=== PATIENT | male | born 1960 | race Caucasian/White ===

== ENCOUNTER 2018-03-08 09:48 | Outpatient (CLI) | payer OTHER, SELFPAY ==
[2018-03-08 11:09] LABS: Anion Gap 8.8 mmol/L (3-11); BUN 12 mg/dL (7-18); CO2 32.2 mmol/L (21.0-32.0); CREATININE 0.87 mg/dL (0.70-1.30); Chloride 100 mmol/L (98-107); Cholesterol 215 mg/dL (50-200); Glucose 98 mg/dL (70-100); HDL Cholesterol 61 mg/dL (40-60); LDL CHOLESTEROL 107 mg/dL (<100); Potassium 4.1 mmol/L (3.5-5.1); Sodium 141 mmol/L (136-145); Triglyceride 143 mg/dL (30-150)
[2018-03-09 11:31] LABS: HIV-1/2 Ag & Ab Screen Negative (NEGAT)
== END 2018-03-08 10:08 ==
PROVIDERS: PCP Internal Medicine; Visit Provider Internal Medicine
DX: E78.5 Hyperlipidemia, unspecified (principal); E11.9 Type 2 diabetes mellitus without complications; I10 Essential (primary) hypertension; R73.01 Impaired fasting glucose; Z11.4 Encounter for screening for human immunodeficiency virus [HIV]
CPT/HCPCS: 36415; 80048; 80061; 83721; 87389

== ENCOUNTER 2019-03-28 09:44 | Outpatient (CLI) | payer OTHER, SELFPAY ==
[2019-03-28 10:44] LABS: Anion Gap 6.9 mmol/L (3-11); BUN 19 mg/dL (7-18); CO2 34.1 mmol/L (21.0-32.0); CREATININE 0.94 mg/dL (0.70-1.30); Calcium 9.8 mg/dL (8.5-10.1); Calculated LDL 165 mg/dL; Chloride 101 mmol/L (98-107); Cholesterol 268 mg/dL (<200); Glucose 100 mg/dL (74-106); HDL Cholesterol 80 mg/dL (40-60); Potassium 4.4 mmol/L (3.5-5.1); Sodium 142 mmol/L (136-145); Triglyceride 119 mg/dL (<150)
[2019-03-29 15:03] LABS: PSA, Screening 0.5 ng/mL (0.0-3.5)
== END 2019-03-28 10:04 ==
PROVIDERS: PCP Internal Medicine; Visit Provider Internal Medicine
DX: I10 Essential (primary) hypertension (principal); E78.00 Pure hypercholesterolemia, unspecified; Z12.5 Encounter for screening for malignant neoplasm of prostate
CPT/HCPCS: 36415; 80048; 80061; 84153

== ENCOUNTER 2019-12-16 09:28 | Emergency (ER) | payer OTHER, SELFPAY ==
[2019-12-16 09:36] VITALS: BP 156/100; PULSE 60; RESP 18; TEMP 36.6; O2SAT 99
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
--- NOTE | 2019-12-16 10:30 | DI.RAD_ITS ---
EXAM: XR SHOULDER RT COMPLETE 2+V CLINICAL HISTORY: R shoulder laterl/post pain TECHNIQUE: 2D digital imaging was performed. COMPARISON: No exams were available for comparison FINDINGS: There is fracture of the scapula seen at the level and beneath level of the glenoid. There is monitoring analyst ior displacement of the inferior fractured portion. The humeral head appears normally aligned with r espect to the glenoid. The AC joint is not widened. No proximal humeral fracture or rib fracture is seen. The there is a small to moderate size right pneumothorax. IMPRESSION: Displaced scapular fracture beneath the level of the glenoid. Right pneumothorax.
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
--- NOTE | 2019-12-16 11:12 | NUR.NOTE ---
REFERRAL FAXED TO [facility] DR Cordero Note:
[2019-12-16 11:17] VITALS: BP 149/90; PULSE 60; RESP 18; O2SAT 100
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
== END 2019-12-16 11:15 | disposition home or self-care (01) ==
PROVIDERS: Emergency Provider Emergency Medicine; PCP Internal Medicine
DX: S42.111A Displaced fracture of body of scapula, right shoulder, initial encounter for closed fracture (principal); S27.0XXA Traumatic pneumothorax, initial encounter; V18.0XXA Pedal cycle driver injured in noncollision transport accident in nontraffic accident, initial encounter; Y93.55 Activity, bike riding; M25.521 Pain in right elbow
CPT/HCPCS: 23570; 71250; 99283; 73030; 73080; 73200; 99282; L3650

== ENCOUNTER 2019-12-18 01:44 | Outpatient (CLI) | payer OTHER, SELFPAY ==
--- NOTE | 2019-12-18 08:35 | DI.RAD_ITS ---
EXAM: XR CHEST 1V IN DI DEPT CLINICAL HISTORY: RT SHOULDER PAIN, F/U PNEUMOTHORAX TECHNIQUE: 2D digital imaging was performed. COMPARISON: CR,XR XR SHOULDER RT COMPLETE 2+V from 12/16/2019 FINDINGS: There has been mild improvement in the size of the right apical pneumothorax when compared with previ ous shoulder films. Findings could also be secondary to differences in patient position. The heart size is normal. The lungs are clear. IMPRESSION: Mild interval improvement in right pneumothorax, small.
== END 2019-12-18 02:04 ==
PROVIDERS: PCP Internal Medicine; Visit Provider Emergency Medicine
DX: J93.83 Other pneumothorax (principal); M25.511 Pain in right shoulder
CPT/HCPCS: 71045

== ENCOUNTER 2019-12-31 14:19 | Outpatient (CLI) | payer OTHER, SELFPAY ==
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
== END 2019-12-31 14:39 ==
PROVIDERS: PCP Internal Medicine; Visit Provider Student in an Organized Health Care Education/Training Program
DX: S42.111A Displaced fracture of body of scapula, right shoulder, initial encounter for closed fracture (principal)
CPT/HCPCS: 73030

== ENCOUNTER 2020-04-11 09:15 | Outpatient (REF) | payer OTHER, SELFPAY ==
[2020-04-11 11:00] LABS: Anion Gap 6.2 mmol/L (3-11); BUN 20 mg/dL (7-18); CO2 30.8 mmol/L (21.0-32.0); CREATININE 0.85 mg/dL (0.70-1.30); Calcium 9.1 mg/dL (8.5-10.1); Calculated LDL 89 mg/dL (<100); Chloride 104 mmol/L (98-107); Cholesterol 185 mg/dL (<200); Glucose 110 mg/dL (74-106); HDL Cholesterol 75 mg/dL (40-60); Potassium 4.1 mmol/L (3.5-5.1); Sodium 141 mmol/L (136-145); Triglyceride 108 mg/dL (<150)
== END 2020-04-11 09:35 ==
LOC: LBN 09:15
PROVIDERS: PCP Internal Medicine; Visit Provider Internal Medicine
DX: I10 Essential (primary) hypertension (principal); E78.00 Pure hypercholesterolemia, unspecified
CPT/HCPCS: 80048; 80061

== ENCOUNTER 2020-11-28 09:23 | Outpatient (REF) | payer OTHER, SELFPAY ==
[2020-11-28 09:55] LABS: Source Nasal/Nares
[2020-11-28 10:48] LABS: COVID-19 PCR Negative (Negative)
== END 2020-11-28 09:24 | disposition home or self-care (01) ==
LOC: LBN 09:23
PROVIDERS: PCP Internal Medicine; Visit Provider Nurse Practitioner Gerontology
DX: Z20.822 Contact with and (suspected) exposure to COVID-19 (principal)
CPT/HCPCS: 87635

== ENCOUNTER 2021-05-13 01:45 | Outpatient (CLI) | payer OTHER, SELFPAY ==
[2021-05-13 10:20] LABS: Anion Gap 6.4 mmol/L (3-11); BUN 19 mg/dL (7-18); CO2 30.6 mmol/L (21.0-32.0); CREATININE 0.8 mg/dL (0.70-1.30); Calcium 9.1 mg/dL (8.5-10.1); Calculated LDL 84 mg/dL (<100); Chloride 105 mmol/L (98-107); Cholesterol 178 mg/dL (<200); Glucose 88 mg/dL (74-106); HDL Cholesterol 75 mg/dL (40-60); Potassium 4.5 mmol/L (3.5-5.1); Sodium 142 mmol/L (136-145); TSH 2.56 uIU/mL (0.36-3.74); Triglyceride 99 mg/dL (<150)
[2021-05-13 17:34] LABS: PSA, Screening 0.6 ng/mL (0.0-4.5)
== END 2021-05-13 01:46 | disposition home or self-care (01) ==
LOC: LBO 01:46
PROVIDERS: PCP Internal Medicine; Visit Provider Internal Medicine
DX: E78.00 Pure hypercholesterolemia, unspecified (principal); R63.5 Abnormal weight gain; I10 Essential (primary) hypertension; Z12.5 Encounter for screening for malignant neoplasm of prostate
CPT/HCPCS: 36415; 80048; 80061; 84153; 84443

== ENCOUNTER 2021-06-12 03:20 | Outpatient (CLI) | payer OTHER, SELFPAY ==
[2021-06-12 09:28] LABS: Source Nasal/Nares
[2021-06-12 14:14] LABS: COVID-19 PCR Negative (Negative)
== END 2021-06-12 03:21 | disposition home or self-care (01) ==
LOC: LBO 03:21
PROVIDERS: PCP Internal Medicine; Visit Provider Surgery
DX: Z20.822 Contact with and (suspected) exposure to COVID-19 (principal)
CPT/HCPCS: 87635

== ENCOUNTER 2021-06-15 06:10 | Day surgery (SDC) | payer OTHER, SELFPAY ==
[2021-06-15 06:19] VITALS: BP 136/96; PULSE 64; RESP 18; TEMP 36.6; O2SAT 97
[2021-06-15] MEDS: Lactated Ringers 1,000 ML 80 ML IV (06:40)
--- NOTE | 2021-06-15 06:46 | COLE_ITS ---
Colonoscopy Report Date of procedure: 06/15/21 Pre-op diagnosis general: Colon Cancer Screening Post-op diagnosis procedure note: same Procedure: Colonoscopy Surgeon: Kindra Santoro Anesthesia Type: General:No Airway Estimated blood loss (mL): 0 Pathology: none sent Complications: None Disposition: same day Indications: The patient is here for Colonoscopy pre-op.?His last screening was in 2012 in the state of [place], which he reports was unremarkable.?He has no family history of colon cancer. He has not had any bowel habit changes. -Discussed colonoscopy bowel prep as well as the procedure. Discussed possible complications of the procedure to include bleeding, pain, perforation, missed small lesion/polyp, sore throat, aspiration and adverse reaction to the medications. Questions were answered to patient?s satisfaction. No guarantees we re implied or given.? Prep: Miralax/Dulcolax Procedure Start Time: 07:27 Procedure End Time: 07:44 Retraction Time: 8 minutes Findings: Normal colon Procedure Description: After informed consent was obtained the patient was taken to the procedure room and placed in a left decubitous position. Monitors were applied and a time out was done. The patients name, date of , procedure, allergies to medic ations and metal in their body was reviewed. The patient was then sedated. Once sedated and comfortable a rectal exam was done. External exam was normal. Internal exam revealed a normal sphincter tone and no palpable masses. The prostate felt smooth. The scope was then introduced and retro-flexed. No internal hemorrhoids, polyps or masses were identified on retro-flexion. The scope was then advanced to the cecum without difficulty. The ileocecal vlave and appendiceal orifice were identified. The prep was good. The scope was then slowly retracted over 8 minutes back into the rectum. there were no polyps. There was no diverticulosis noted. The scope was removed and the patient was woken up and taken back to Same day surgery in stable condition. The patient tolerated the procedure well and there were no immediate complications. Follow up: The patient should follow up in 10 years unless they develop changes in bowel habits or other new gastrointestinal complaints.
--- NOTE | 2021-06-15 06:49 | W.PM.DSUDISC ---
Discharge Plan Disposition Patient Disposition: HOME Condition: Good Discharge Details Reason For Visit: Colonoscopy Attending Provider: Kindra Santoro Primary Care Provider: Monae Thomas Home Meds and New Rx's Prescriptions: Continued epinephrine [EpiPen 2-Venkata] 0.3 mg/0.3 mL auto-injector 0.3 mg IM ONCE PRN (Reason: anaphylaxis) Qty: 1 2RF fluticasone propionate 16 GM spray,suspension 50 mcg NS BID PRN0RF psyllium husk [Metamucil] 0.52 GM capsule 0.52 gm PO DAILY PRN0RF ibuprofen 200 MG tablet 200 mg PO HS PRN0RF Rx Instructions: 2-3 qhs prn pain sertraline [Zoloft] 50 mg tablet 150 mg PO DAILY Qty: 270 3RF Rx Instructions: for depression hydrochlorothiazide 12.5 mg capsule 12.5 mg PO DAILY Qty: 90 3RF Discharge Instructions Additional Instructions: Findings: Normal colon Follow up: 10 years Please call if you develop: fevers >101.5 Nausea or Vomiting Abdominal pain that is not transient Rectal bleeding that is more then a tbsp A hard abdomen and inability to pass gas DAY SURGERY UNIT POST ENDOSCOPY INSTRUCTIONS Instructions for everyone who is given Anesthesia: For your safety, please do the following for the next 24 Hours: a. Do not drive or operate dangerous equipment b. Do not drink alcohol beverages or use any recreational drugs for the first 24 hours or while taking pain medications. The medications in your body may have a reaction that can be dangerous. c. Do not make any important decisions or sign any important papers 1. Generally there are no restrictions on your activity after a day or so has gone by, but you may feel a bit fatigued for a few days. 2. After you arrive home you may have a light meal and return to a normal diet as you can tolerate it without feeling sick to your stomach. 3. After surgery, you may feel pain or discomfort. This should be only transient, but if it persists please contact your doctor. 4. If there are any questions regarding the findings of your procedure, please feel free to contact your doctor. 6. If you are unable to contact your doctor with a problem, contact the hospital at [phone]. 7. Continue all your regular medications unless directed otherwise. I understand the above instructions and have no questions. Signature of Patient or Responsible Adult Escort Date/Time Name of Responsible Adult Escort Signature of Nurse Date/Time Activity:: Activity as Tolerated Diet:: As Tolerated Discharge Orders Discharge Orders: Discharge Order (Routine); Ordered 06/15/21 Ordered By: Kindra Santoro
[2021-06-15 07:03] VITALS: BMI 26.2
--- NOTE | 2021-06-15 07:03 | W.ANESPRE ---
General Info Date of Service Date Performed: 06/15/21 Height: 6 ft 3 in Weight: 95.311 kg Body Mass Index (BMI): 26.2 Surgical Procedure: Operation Date: 06/15/21 07:35 Proposed Procedure Side Surgeon michael Santoro MD Meds Allergies and Home Medications Allergies Allergy/AdvReac Type Severity Reaction Status Date / Time hornet venom Allergy Severe lips and Verified 06/15/21 06:22 facial swelling No Known Drug Allergies Allergy Verified 06/15/21 06:22 Home Medication Medication Instructions Recorded fluticasone propionate 50 50 mcg NS BID PRN spray 02/25/16 mcg/actuation nasal spray,suspension psyllium husk 0.52 gram capsule 0.52 gm PO DAILY PRN 02/25/16 (Metamucil) ibuprofen 200 mg tablet 200 mg PO HS PRN 03/02/17 epinephrine 0.3 mg/0.3 mL 0.3 mg (0.3 mL) IM ONCE PRN #1 each 03/28/19 injection, auto-injector (EpiPen 2-Venkata) hydrochlorothiazide 12.5 mg capsule 12.5 mg PO DAILY #90 tab-cap 03/17/21 sertraline 50 mg tablet (Zoloft) 150 mg PO DAILY #270 tab-cap 03/17/21 Current Visit Medications: Current Medications Generic Name Dose Route Start Last Admin Trade Name Freq PRN Reason Stop Dose Admin Hyoscyamine Sulfate 0.125 mg 06/15/21 06:49 Hyoscyamine 0.125 Mg Sl/Oral/Chew SL DIRECTED PRN Ringer's Solution 1,000 mls @ 80 mls/hr 06/15/21 06:00 06/15/21 06:40 IV 07/12/21 23:59 80 mls/hr INFUSION KRISTI Administration IV Miscellaneous Supplies 1 each 06/15/21 06:00 Iv Access IV 07/12/21 23:59 DIRECTED KRISTI Ondansetron HCl 4 mg 06/15/21 06:49 Ondansetron 4 Mg/2 Ml Vial IVP Q4H PRN PRN Nausea / Vomiting Sodium Chloride 0 ml 06/15/21 06:00 Normal Saline Flush 10 Ml Syr IV 07/12/21 23:59 PRN PRN Sodium Chloride 0 ml 06/15/21 06:00 Normal Saline 10 Ml Vial IJ 07/12/21 23:59 DIRECTED PRN Sterile Water 0 ml 06/15/21 06:00 Water,Injection,Sterile 10 Ml Vial IJ 07/12/21 23:59 DIRECTED PRN PFSH Active Problems Active Problems: Problem Status Onset Code Hypertension 02/18/15 I10 Hyperlipidemia 02/18/15 E78.5 Medical History Medical History Allergic rhinitis (02/18/15) Bee sting reaction (02/25/16) Degeneration of lumbar intervertebral disc (02/18/15) Depression (02/18/15) Encounter for screening laboratory testing for COVID-19 virus Pneumothorax on right (12/16/19) Right scapula fracture (12/16/19) Surgical History Surgical History Arthroplasty of knee left and right-pt. denies History of arthroscopy of both knees Lumbar laminectomy L4-5 wisdom teeth extraction Tobacco Smoking/Tobacco Use Status: Current-Occasional Tobacco Type: cigars Alcohol Alcohol Intake: current Alcohol intake frequency: holidays/special occasions only Substance Use Substance use: Never Substance use type: does not use Vital Signs and Lab Results Vital Signs Most Recent Vital Signs in EMR: Most Recent Vital Signs Temp Pulse Resp BP Pulse Ox 36.6 C 64 18 136/96 H 97 06/15/21 06:19 06/15/21 06:19 06/15/21 06:19 06/15/21 06:19 06/15/21 06:19 Lab Results Blood Type / Crossmatch: No Data to Display Complete Blood Count: No Data to Display Complete Metabolic Panel: No Data to Display Liver Function Panel: No Data to Display Coagulation Panel: No Data to Display Cardiac Panel: No Data to Display Arterial Blood Gas: No Data to Display Venous Blood Gas: No Data to Display Pancreas Panel: No Data to Display Thyroid Panel: No Data to Display Infectious Disease: Coronavirus (COVID-19)(PCR) Negative (Negative) 06/12/21 09:15 06/12/21 Coronavirus 2019 Source Nasal/Nares 06/12/21 09:15 06/12/21 Blood Cultures: No Data to Display Toxicology Panel: No Data to Display Anesthesia Assessment and Plan Anesthesia History Personal History: No History of Anesthesia Complications Family History: No Family History of Anesthesia Complications Exercise Tolerance Exercise Tolerance: Metabolic Equivalents>4 Pertinent Negatives Pertinent Negatives: No Symptoms of GERD Cardiac & Pulmonary Exam Cardiac Exam: Normal S1/S2 Heart Sounds Pulmonary Exam: Clear Bilateral Breath Sounds Implantable Cardiac Device Does patient have a Pacemaker or an ICD?: No Airway Exam Known Difficult Airway: No Mallampati Class: 2 Mouth Opening: Normal (> 3cm) Thyromental Distance: Greater than 3 cm Neck Range of Motion: Full ROM Neck Circumference: Normal Teeth Condition: Normal Dentition ASA Classification ASA Score: ASA 2 Emergency Case?: No NPO Status NPO Status: NPO Clears >2 hours, Solids >8 hours Anesthesia Plan Resuscitation Status: Full Code Anesthesia Technique: General Anesthesia Airway Planned: Natural Airway Monitors Used: Standard Monitors
[2021-06-15 07:58] VITALS: BP 110/83; PULSE 62; RESP 16; TEMP 36.3; O2SAT 97
[2021-06-15 08:20] VITALS: BP 123/85; PULSE 52; RESP 16; TEMP 36.3; O2SAT 96
--- NOTE | 2021-06-15 08:50 | W.ANESPOSTOP ---
Postoperative Evaluation Date, Time and Location Date Performed: 06/15/21 Time Performed: 08:20 Patient Location: Day Surgery Unit Vital Signs Most Recent Imported Vital Signs: Most Recent Vital Signs Temp Pulse Resp BP Pulse Ox 36.3 C L 52 L 16 123/85 96 06/15/21 08:20 06/15/21 08:20 06/15/21 08:20 06/15/21 08:20 06/15/21 08:20 Pain Score Most Recent Pain Score: Most Recent Pain Score Pain Level 0 06/15/21 08:20 Assessment Mental Status: Awake (Alert & Oriented to Patient Baseline) Airway and Respiratory Function: Patent airway with normal (patient baseline) respiratory exam Cardiovascular Function: Hemodynamically Stable Hydration Status: Adequately Hydrated Nausea & Vomiting: No Nausea or Vomiting Pain: Pt. Denies Any Pain Peripheral Nerve Block: Patient did not receive a nerve block
== END 2021-06-15 08:45 | disposition home or self-care (01) ==
PROVIDERS: PCP Internal Medicine; Visit Provider Surgery
PROC: 0DJD8ZZ Inspection of Lower Intestinal Tract, Via Natural or Artificial Opening Endoscopic (ICD-10-PCS; CPT 45378; principal; 2021-06-15 07:30)
DX: Z12.11 Encounter for screening for malignant neoplasm of colon (principal); E78.5 Hyperlipidemia, unspecified; I10 Essential (primary) hypertension
CPT/HCPCS: 45378

== ENCOUNTER 2021-07-13 07:07 | Outpatient (REF) | payer OTHER, SELFPAY ==
[2021-07-13 07:12] LABS: Source Nasal/Nares
[2021-07-13 07:52] LABS: COVID-19 PCR Negative (Negative)
== END 2021-07-13 07:08 | disposition home or self-care (01) ==
LOC: LBN 07:07
PROVIDERS: PCP Internal Medicine; Visit Provider Obstetrics & Gynecology
DX: Z20.822 Contact with and (suspected) exposure to COVID-19 (principal)
CPT/HCPCS: 87635

== ENCOUNTER 2022-04-29 13:39 | Outpatient (REF) | payer OTHER, SELFPAY ==
[2022-04-29 10:39] LABS: Anion Gap 5.9 mmol/L (3-11); BUN 20 mg/dL (7-18); CO2 33.1 mmol/L (21.0-32.0); CREATININE 0.8 mg/dL (0.70-1.30); Calcium 9.7 mg/dL (8.5-10.1); Calculated LDL 87 mg/dL (<100); Chloride 104 mmol/L (98-107); Cholesterol 192 mg/dL (<200); Estimated GFR 100.69 (mL/min/1.73m2); Glucose 109 mg/dL (74-106); HDL Cholesterol 83 mg/dL (40-60); Potassium 4.2 mmol/L (3.5-5.1); Sodium 143 mmol/L (136-145); Triglyceride 114 mg/dL (<150)
== END 2022-04-29 13:40 | disposition home or self-care (01) ==
LOC: LBN 13:39
PROVIDERS: PCP Nurse Practitioner Adult Health; Visit Provider Nurse Practitioner Adult Health
DX: E78.00 Pure hypercholesterolemia, unspecified (principal); F32.9 Major depressive disorder, single episode, unspecified; I10 Essential (primary) hypertension
CPT/HCPCS: 80048; 80061

== ENCOUNTER 2022-06-17 01:12 | Outpatient (CLI) | payer OTHER, SELFPAY ==
--- NOTE | 2022-06-17 14:01 | DI.US_ITS ---
APPROVED REPORT EXAM: Comprehensive 2D, Doppler, and color-flow Echocardiogram Patient Location: Out-Patient Conveyor Belt Installer: Levi Garcia RDMS, RVT Indications: assess valves, new cardiac murmur R sternal border Other Information Study Quality: Adequate. Technically limited study due to body habitus. Conclusion Normal left ventricular wall thickness and chamber size. Estimated ejection fraction is 60 to 65%. Wall motion is normal Normal right ventricular size and systolic function Both atria are normal in size Aortic valve is calcified and probably trileaflet. There is mild aortic stenosis with a peak gradien t of 23, mean of 13 mmHg and a calculated aortic valve area 1.11 cm?? Estimated right ventricular systolic pressure is 17 mmHg Wall motion Left Ventricle The left ventricle is normal size. The left ventricular systolic function is normal. The left ventric ular ejection fraction is within the normal range. There is normal left ventricular wall thickness. T here is normal LV segmental wall motion. There is no ventricular septal defect visualized. LVEF is 60 -65%. Right Ventricle The right ventricle is normal size. The right ventricular systolic function is normal. The RVSP is 17 .2 mmHg. Atria The left atrium size is normal. The right atrium size is normal. The interatrial septum is intact wit h no evidence for an atrial septal defect. Aortic Valve Aortic valve is calcified. Aortic valve is probably trileaflet. Mild aortic stenosis. Peak aortic radha ve gradient is 22.6 mmHg. Highest mean aortic valve gradient is 12.8 mmHg. Calculated SEAN by the cont inuity equation is 1.11 cm2. No aortic regurgitation is present. Mitral Valve The mitral valve is normal in structure. No evidence of mitral valve stenosis. Trace mitral regurgita tion. Tricuspid Valve The tricuspid valve is normal in structure. There is no tricuspid valve stenosis. Trace tricuspid reg urgitation. Pulmonic Valve Pulmonic valve is not well visualized. There is no pulmonic valvular stenosis. There is no pulmonic v alvular regurgitation. Great Vessels The aortic root is normal in size. The ascending aorta is normal in size. Aortic arch is not well vis ualized. IVC is normal in size and collapses >50% with inspiration. Pericardium There is no pericardial effusion. 2D Dimensions IVSD d PLAX 0.80 cm M: 0.6-1.2 LV Vol A2C d MOD 126.1 mL LVPW d PLAX 0.89 cm M: 0.6 - 1.2 LV Vol A4C d MOD 117.1 mL LVID d PLAX 5.63 cm M: 4.2 - 5.8 LA vol/ BSA A2C s A-L 24.1 mL/m2 LVDs 3.70 cm M: 2.5 - 4.0 LA vol/ BSA A4C s A-L 17.9 mL/m2 Ao Root d 3.13 cm M: 3.1 - 3.7 LA Vol/ BSA Biplane s A-L 24.3 mL/m2 Ao Asc Diam d 3.17 cm M: 2.6 - 3.4 LA Area A4C s MOD 12.87 cm2 LV EF Teichholz 61.8 % LA Area A2C s MOD 17.48 cm2 LVEF (Bearden's) 62.27 % M: 52 - 72 LV EF A4C MOD 60.3 % LV Volume 93.41 mL M: 62 - 150 LV EF A2C MOD 65.9 % LV Volume Index 41.70 mL/m2 M: 34 - 74 LV EF Biplane MOD 62.3 % LV Vol Biplane MOD 129.2 mL SV 80.43 mL FS 33.60 % SV Index 35.90 mL/m2 M-Mode TAPSE 3.80 cm (M/F) >1.7 LV Diastology MV E' medial 0.077 (>0.07 m/s) E/A Ratio 1.0 LV E/e MED 8.25 (<14) MV E Vmax 0.64 (0.4-1.3 m/s) MV E' lateral 0.127 (>0.1 m/s) MV A Vmax 0.65 (0.4-1.3 m/s) LV E/e LAT 5.00 (<14) MV E/A Ratio 0.97 MV E/E' medial 8.25 MV E/E' lateral 5.00 Aortic Valve LVOT Area 2.64 cm2 AoV Area Vmax 1.11 cm2 LVOT Vmax 1.00 m/s AoV Area/ BSA (Vmax) 0.49 cm2/m2 LVOT Mean Magan. 0.69 m/s SEAN Mean Magan. 1.06 cm2 LVOT Peak Grad 4.0 mmHg SEAN Mean Magan. Index 0.47 cm2/m2 LVOT Mean Grad 2.1 mmHg LVOT VTI 0.247 m LVOT Diam s 1.80 cm AoV Vmax 2.38 m/s Velocity Ratio 0.42 AoV Mean Magan. 1.71 m/s AoV Peak Grad 22.6 mmHg LVOT SV 65.29 mL AoV Mean Grad 12.8 mmHg AoV VTI 0.537 m AoV Area VTI 1.22 cm2 AoV Area/ BSA (VTI) 0.54 cm/m2 Mitral Valve MV DT 373 (160-240 msec) MV PHT 108 msec MV Area PHT 2.03 cm2 Pulmonary Valve PV Vmax 1.17 (0.5-1.5 m/s) RVOT Peak Gr. 1.52 mmHg PV Peak Grad 5.5 mmHg RVOT Mean Gr. 0.85 mmHg PV Mean Grad 3.8 mmHg RVOT VTI 0.142 m PV VTI 0.242 m RVOT Vmax 0.62 m/s Tricuspid Valve TR Peak Grad 14.1 mmHg TR Vmax 1.88 m/s RA Pressure 3.00 mmHg RVSP (TR) 17.2 mmHg
== END 2022-06-17 01:32 ==
LOC: DI 01:12
PROVIDERS: PCP Nurse Practitioner Adult Health; Visit Provider Nurse Practitioner Adult Health
DX: R01.1 Cardiac murmur, unspecified (principal)
CPT/HCPCS: 93306

== ENCOUNTER 2022-09-17 13:41 | Outpatient (REF) | payer OTHER, SELFPAY ==
[2022-09-17 09:42] LABS: Abs Immature Grans 0.04 10^3/uL (0.0-0.06); Absolute Basophil Count 0.07 10^3/uL (0.0-0.2); Absolute Eosinophil Count 0.13 10^3/uL (0.0-0.7); Absolute Lymphocyte Count 2.12 10^3/uL (1.2-3.4); Absolute Monocyte Count 1.12 10^3/uL (0.1-0.8); Absolute Neutrophil Count 7.16 10^3/uL (1.2-6.7); Basophils % 0.7; Eosinophils % 1.2; HCT 42.7 % (40.0-50.0); HGB 14.1 g/dL (13.5-17.5); Immature Grans % 0.4; Lymphocytes % 19.9; MCH 30.3 pg (27.0-33.0); MCV 92 fL (80-95); MPV 9.6 fL (8.0-11.0); Monocytes % 10.5; Neutrophils % 67.3; Platelet Count 385 10^3/uL (130-400); RBC 4.66 10^6/uL (4.36-5.78); RDW 12.6 % (11.8-14.1); RDW-SD 42.3 fL; WBC 10.64 10^3/uL (4.4-10.8)
[2022-09-17 09:49] LABS: ESR 66 mm/hr (0-20)
[2022-09-17 10:12] LABS: C-Reactive Protein 7.25 mg/dL (0.0-0.3)
[2022-09-20 12:04] LABS: Lyme Ab w Rflx to Lyme Confirm Negative (Negative)
[2022-09-20 18:06] LABS: Anaplasma phagocytophilum Negative (Negative); B. miyamotoi PCR Negative (Negative); Babesia divergens/MO-1 Negative (Negative); Babesia duncani Negative (Negative); Babesia microti Negative (Negative); Ehrlichia chaffeensis Negative (Negative); Ehrlichia ewingii/canis Negative (Negative); Ehrlichia muris eauclairensis Negative (Negative)
== END 2022-09-17 13:42 | disposition home or self-care (01) ==
LOC: LBN 13:41
PROVIDERS: PCP Nurse Practitioner Adult Health; Visit Provider Student in an Organized Health Care Education/Training Program
DX: M25.432 Effusion, left wrist (principal); M75.101 Unspecified rotator cuff tear or rupture of right shoulder, not specified as traumatic; M75.21 Bicipital tendinitis, right shoulder
CPT/HCPCS: 85652; 87798; 85025; 86140; 86618

== ENCOUNTER 2022-10-05 15:35 | Outpatient (CLI) | payer OTHER, SELFPAY ==
--- NOTE | 2022-10-05 15:15 | DI.RAD_ITS ---
Exam(s) XR SHOULDER RT COMPLETE 2+V EXAM: XR SHOULDER RT COMPLETE 2+V CLINICAL HISTORY: Right shoulder pain. TECHNIQUE: 2D digital imaging was performed. Five views. COMPARISON: CR XR SHOULDER RT COMPLETE 2+V from 12/31/2019 FINDINGS: BONES: No acute fracture is present. Old scapular fracture. No bony destructive lesion is seen. JOINTS: No dislocation present. Mild degenerative changes are present at the glenohumeral joint. No significant spurring at the acromioclavicular joint. SOFT TISSUE: Normal. IMPRESSION: Mild degenerative changes. DATA REPOSITORY: RADIATION DOSE DELIVERED:
--- NOTE | 2022-10-05 15:15 | DI.RAD_ITS ---
Exam(s) XR WRIST RT LIMITED EXAM: XR WRIST RT LIMITED CLINICAL HISTORY: Right wrist pain. TECHNIQUE: 2D digital imaging was performed. Three views. COMPARISON: CR XR WRIST LT LIMITED from 10/05/2022 FINDINGS: BONES: No acute fracture is present. No bony destructive lesion is seen. The bones are normally miner helper alized. JOINTS: Mild widening of the scapholunate distance. The carpal bones are otherwise normally aligned. Minimal degenerative changes. SOFT TISSUE: Normal. IMPRESSION: Mild widening of the scapholunate distance. DATA REPOSITORY: RADIATION DOSE DELIVERED:
--- NOTE | 2022-10-05 15:15 | DI.RAD_ITS ---
Exam(s) XR WRIST LT LIMITED EXAM: XR WRIST LT LIMITED CLINICAL HISTORY: Left wrist pain. TECHNIQUE: 2D digital imaging was performed. Three views. COMPARISON: CR XR WRIST RT LIMITED from 10/05/2022 FINDINGS: BONES: No acute fracture is present. No bony destructive lesion is seen. The bones appear osteopenic. JOINTS: There is mild widening of the scapholunate distance, similar to the contralateral wrist. M ild degenerative changes. SOFT TISSUE: Soft tissue swelling in the carpal region. Calcification in the triangular fibrocartila ge. IMPRESSION: Soft tissue swelling and osteopenia. Chondrocalcinosis. Mild widening of the scapholunate distance. DATA REPOSITORY: RADIATION DOSE DELIVERED:
== END 2022-10-05 15:36 | disposition home or self-care (01) ==
LOC: DIORS 15:35
PROVIDERS: PCP Nurse Practitioner Adult Health; Referring Provider Nurse Practitioner Adult Health; Visit Provider Student in an Organized Health Care Education/Training Program
DX: M25.532 Pain in left wrist (principal); M25.531 Pain in right wrist; M25.511 Pain in right shoulder; M11.232 Other chondrocalcinosis, left wrist
CPT/HCPCS: 73030; 73100

== ENCOUNTER 2022-10-08 08:06 | Outpatient (REF) | payer OTHER, SELFPAY ==
[2022-10-08 10:05] LABS: Abs Immature Grans 0.03 10^3/uL (0.0-0.06); Absolute Basophil Count 0.09 10^3/uL (0.0-0.2); Absolute Eosinophil Count 0.17 10^3/uL (0.0-0.7); Absolute Lymphocyte Count 1.84 10^3/uL (1.2-3.4); Absolute Monocyte Count 0.82 10^3/uL (0.1-0.8); Absolute Neutrophil Count 6.63 10^3/uL (1.2-6.7); Basophils % 0.9; Eosinophils % 1.8; HGB 13.7 g/dL (13.5-17.5); Immature Grans % 0.3; Lymphocytes % 19.2; MCH 29.6 pg (27.0-33.0); MCHC 32.6 % (32.0-36.0); MCV 91 fL (80-95); MPV 9.6 fL (8.0-11.0); Monocytes % 8.6; Neutrophils % 69.2; Platelet Count 374 10^3/uL (130-400); RBC 4.63 10^6/uL (4.36-5.78); RDW 12.9 % (11.8-14.1); RDW-SD 42.4 fL; WBC 9.58 10^3/uL (4.4-10.8)
[2022-10-08 10:07] LABS: ESR 56 mm/hr (0-20)
[2022-10-08 10:22] LABS: Anion Gap 8.5 mmol/L (3-11); BUN 18 mg/dL (7-18); CO2 29.5 mmol/L (21.0-32.0); CREATININE 0.9 mg/dL (0.70-1.30); Calcium 9.3 mg/dL (8.5-10.1); Calculated LDL 55 mg/dL (<100); Chloride 105 mmol/L (98-107); Cholesterol 132 mg/dL (<200); Estimated GFR 96.57 (mL/min/1.73m2); Glucose 119 mg/dL (74-106); HDL Cholesterol 64 mg/dL (40-60); Hemoglobin A1C 5.5 % (<5.7); Potassium 4.1 mmol/L (3.5-5.1); Sodium 143 mmol/L (136-145); Triglyceride 65 mg/dL (<150)
[2022-10-08 14:26] LABS: C-Reactive Protein 4.98 mg/dL (0.0-0.3)
[2022-10-08 20:28] LABS: Rheumatoid Factor <8.6 IU/mL (<12.0)
[2022-10-08 20:54] LABS: PSA, Screening 0.7 ng/mL (<=4.5)
[2022-10-11 09:27] LABS: Cyclic Citrullinated Peptide <2.5 U/mL (<5.0)
[2022-10-11 14:34] LABS: ANA Interpretation Negative (Negative)
== END 2022-10-08 08:07 | disposition home or self-care (01) ==
LOC: LBN 08:06
PROVIDERS: Student in an Organized Health Care Education/Training Program; PCP Nurse Practitioner Adult Health; Visit Provider Nurse Practitioner Adult Health
DX: Z00.00 Encounter for general adult medical examination without abnormal findings (principal); E78.00 Pure hypercholesterolemia, unspecified; I10 Essential (primary) hypertension; R73.01 Impaired fasting glucose; R70.0 Elevated erythrocyte sedimentation rate; R79.82 Elevated C-reactive protein (CRP); M25.50 Pain in unspecified joint; Z12.5 Encounter for screening for malignant neoplasm of prostate
CPT/HCPCS: 80048; 80061; 84153; 85652; 86200; 83036; 85025; 86038; 86140; 86431

== ENCOUNTER 2022-10-13 14:19 | Outpatient (REF) | payer OTHER, SELFPAY ==
[2022-10-13 15:06] LABS: ESR 24 mm/hr (0-20)
[2022-10-13 15:25] LABS: ALT 23 U/L (16-63); AST 12 U/L (15-37); Albumin 3.7 g/dL (3.4-5.0); Alkaline Phosphatase 150 U/L (46-116); Anion Gap 9.4 mmol/L (3-11); BUN 21 mg/dL (7-18); Bilirubin, Total 0.2 mg/dL (0.2-1.0); C-Reactive Protein 0.68 mg/dL (0.0-0.3); CO2 28.6 mmol/L (21.0-32.0); CREATININE 0.8 mg/dL (0.70-1.30); Calcium 9.1 mg/dL (8.5-10.1); Chloride 104 mmol/L (98-107); Estimated GFR 100.06 (mL/min/1.73m2); Glucose 99 mg/dL (74-106); Potassium 4.1 mmol/L (3.5-5.1); Sodium 142 mmol/L (136-145); TSH (W/Ref FT4) 1.96 uIU/mL (0.36-3.74); Total Protein 7.9 g/dL (6.4-8.2); Uric Acid 4.4 mg/dL (3.5-7.2)
[2022-10-13 15:44] LABS: Vitamin D 25 Total 18.6 ng/mL (30-100)
[2022-10-14 09:44] LABS: Lyme Ab w Rflx to Lyme Confirm Negative (Negative)
[2022-10-14 10:35] LABS: HBs Antibody, Qual Positive (See Note); HBs Antibody, Quant >1000.0 mIU/mL (See Note); Hepatitis B Core Antibody Negative (Negative); Hepatitis B surface Ag Negative (Negative); Hepatitis C Ab w Rflx HCV PCR Negative (Negative)
[2022-10-14 10:40] LABS: Hepatitis C Ab w Rflx HCV PCR Negative (Negative)
[2022-10-15 15:27] LABS: Parvovirus B19 Ab, IgG Negative (Negative); Parvovirus B19 Ab, IgM Negative (Negative)
[2022-10-16 16:36] LABS: Anaplasma phagocytophilum Negative (Negative); B. miyamotoi PCR Negative (Negative); Babesia divergens/MO-1 Negative (Negative); Babesia duncani Negative (Negative); Babesia microti Negative (Negative); Ehrlichia chaffeensis Negative (Negative); Ehrlichia ewingii/canis Negative (Negative); Ehrlichia muris eauclairensis Negative (Negative)
== END 2022-10-13 14:20 | disposition home or self-care (01) ==
LOC: LBN 14:19
PROVIDERS: PCP Nurse Practitioner Adult Health; Visit Provider Nurse Practitioner Adult Health
DX: M25.432 Effusion, left wrist (principal); M25.50 Pain in unspecified joint; R70.0 Elevated erythrocyte sedimentation rate; R79.82 Elevated C-reactive protein (CRP)
CPT/HCPCS: 80053; 82306; 85652; 86704; 86706; 86803; 87340; 87798; 84443; 84550; 86140; 86618; 86747

== ENCOUNTER → 2023-02-16 01:28 | Outpatient (CLI) | payer OTHER, SELFPAY ==
--- NOTE | 2023-02-16 | DI.DEXA_ITS ---
Exam(s) XR DEXA BONE DENSITY W/WO ISAMAR EXAM: XR DEXA BONE DENSITY W/WO ISAMAR CLINICAL HISTORY: AT HIGH RISK FOR OSTEOPOROSIS,Z91.89 TECHNIQUE: COMPARISON: No exams were available for comparison FINDINGS: Lateral Spine Image: Unremarkable. No compression deformities identified. Left hip: Total T-Score: -1.3 Total Z-Score: -0.8 T- and Z-scores: Findings are consistent with osteopenia. Lumbar Spine: Total T-Score: -0.3 Total Z-Score: 0.4 T- and Z-scores: Within normal limits. IMPRESSION: No evidence of osteoporosis.
== END ==
PROVIDERS: PCP Nurse Practitioner Adult Health; Visit Provider Internal Medicine Rheumatology
DX: Z13.820 Encounter for screening for osteoporosis (principal); Z91.89 Other specified personal risk factors, not elsewhere classified
CPT/HCPCS: 77080

== ENCOUNTER 2023-08-09 12:58 | Outpatient (CLI) | payer OTHER, SELFPAY ==
[2023-08-09 14:12] LABS: Vitamin D 25 Total 41.3 ng/mL (30-100)
== END 2023-08-09 12:59 | disposition home or self-care (01) ==
LOC: LBO 12:59
PROVIDERS: PCP Nurse Practitioner Adult Health; Visit Provider Nurse Practitioner Adult Health
DX: E55.9 Vitamin D deficiency, unspecified (principal); M85.89 Other specified disorders of bone density and structure, multiple sites
CPT/HCPCS: 36415; 82306

== ENCOUNTER 2024-05-03 10:54 | Outpatient (CLI) | payer OTHER, SELFPAY ==
[2024-05-03 07:26] LABS: Abs Immature Grans 0.01 10^3/uL (0.0-0.06); Absolute Basophil Count 0.05 10^3/uL (0.0-0.2); Absolute Eosinophil Count 0.25 10^3/uL (0.0-0.7); Absolute Lymphocyte Count 1.21 10^3/uL (1.2-3.4); Absolute Monocyte Count 0.74 10^3/uL (0.1-0.8); Absolute Neutrophil Count 1.93 10^3/uL (1.2-6.7); Basophils % 1.2 %; HCT 45.2 % (40.0-50.0); HGB 15.6 g/dL (13.5-17.5); Immature Grans % 0.2 %; Lymphocytes % 28.9 %; MCH 34.4 pg (27.0-33.0); MCHC 34.5 % (32.0-36.0); MCV 100 fL (80-95); MPV 9.5 fL (8.0-11.0); Monocytes % 17.7 %; Platelet Count 196 10^3/uL (130-400); RBC 4.53 10^6/uL (4.36-5.78); RDW 13.7 % (11.8-14.1); RDW-SD 50.1 fL; WBC 4.19 10^3/uL (4.4-10.8)
[2024-05-03 07:42] LABS: Hemoglobin A1C 5.3 % (<5.7)
[2024-05-03 07:58] LABS: ESR < 1 mm/hr (0-20)
[2024-05-03 08:17] LABS: ALT 35 U/L (16-63); AST 26 U/L (15-37); Alkaline Phosphatase 70 U/L (46-116); Anion Gap 1.3 mmol/L (3-11); BUN 14 mg/dL (7-18); Bilirubin, Total 0.77 mg/dL (0.2-1.0); CO2 33.7 mmol/L (21.0-32.0); CREATININE 0.9 mg/dL (0.70-1.30); Calcium 9.3 mg/dL (8.5-10.1); Calculated LDL 58 mg/dL (<100); Chloride 106 mmol/L (98-107); Cholesterol 171 mg/dL (<200); Estimated GFR 95.97 (mL/min/1.73m2); Folate > 20.0 ng/mL (8.6-20.0); Glucose 97 mg/dL (74-106); HDL Cholesterol 89 mg/dL (40-60); Potassium 4.4 mmol/L (3.5-5.1); Sodium 141 mmol/L (136-145); Total Protein 6.4 g/dL (6.4-8.2); Triglyceride 120 mg/dL (<150); Vitamin B12 332 pg/mL (193-986); Vitamin D 25 Total 42.5 ng/mL (30-100)
[2024-05-03 08:28] LABS: Uric Acid 4.4 mg/dL (3.5-7.2)
[2024-05-03 08:32] LABS: C-Reactive Protein < 0.50 mg/dL (<or=0.5)
== END 2024-05-03 10:55 | disposition home or self-care (01) ==
LOC: LBO 10:54
PROVIDERS: PCP Nurse Practitioner Adult Health; Visit Provider Nurse Practitioner Adult Health
DX: E78.00 Pure hypercholesterolemia, unspecified (principal); R73.01 Impaired fasting glucose; M85.80 Other specified disorders of bone density and structure, unspecified site; E55.9 Vitamin D deficiency, unspecified; Z51.81 Encounter for therapeutic drug level monitoring; M31.6 Other giant cell arteritis
CPT/HCPCS: 36415; 80053; 80061; 82306; 85652; 82607; 82746; 83036; 84550; 85025; 86140

== ENCOUNTER 2024-10-11 14:08 | Outpatient (CLI) | payer OTHER, SELFPAY ==
[2024-10-11 22:46] LABS: PSA, Screening 0.7 ng/mL (<=4.5)
[2024-10-12 11:23] LABS: Lyme Ab w Rflx to Lyme Confirm Negative (Negative)
[2024-10-15 17:54] LABS: B. miyamotoi PCR Negative (Negative); Babesia divergens/MO-1 Negative (Negative); Ehrlichia muris eauclairensis Negative (Negative)
== END 2024-10-11 14:09 | disposition home or self-care (01) ==
LOC: LBO 14:08
PROVIDERS: PCP Nurse Practitioner Adult Health; Visit Provider Nurse Practitioner Adult Health
DX: Z12.5 Encounter for screening for malignant neoplasm of prostate (principal); W57.XXXA Bitten or stung by nonvenomous insect and other nonvenomous arthropods, initial encounter
CPT/HCPCS: 36415; 84153; 87798; 86618

== ENCOUNTER 2024-11-26 07:29 | Outpatient (CLI) | payer OTHER, SELFPAY ==
[2024-11-26 11:01] LABS: Abs Immature Grans 0.00 10^3/uL (0.0-0.06); HCT 42.8 % (40.0-50.0); HGB 14.8 g/dL (13.5-17.5); Immature Grans % 0.0 %; MCH 34.4 pg (27.0-33.0); MCHC 34.6 % (32.0-36.0); MCV 100 fL (80-95); MPV 10.2 fL (8.0-11.0); Platelet Count 194 10^3/uL (130-400); RBC 4.30 10^6/uL (4.36-5.78); RDW 13.1 % (11.8-14.1); RDW-SD 48.0 fL; WBC 4.16 10^3/uL (4.4-10.8)
== END 2024-11-26 07:30 | disposition home or self-care (01) ==
LOC: LBO 11-27 07:29
PROVIDERS: PCP Nurse Practitioner Adult Health; Visit Provider Internal Medicine Rheumatology
DX: M31.6 Other giant cell arteritis (principal); D72.819 Decreased white blood cell count, unspecified
CPT/HCPCS: 36415; 85025